=== PATIENT | female | born 1990 | race African-American/Black ===

== ENCOUNTER 2017-08-07 16:40 | Emergency (ER) | payer OTHER ==
[~2017-08-07] VITALS: Ht 162.6 cm; Wt 88.0 kg
[2017-08-07 16:47] VITALS: BP 114/79
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
[2017-08-07] MEDS ORDERED: IBUPROFEN600 MG ORAL (17:56)
[2017-08-07 18:58] VITALS: BP 100/59
--- NOTE | 2017-08-08 10:51 | Diagnostic Imaging Report ---
Indication: PAIN Technique: 3 views of the right elbow Comparison: none Findings: No acute fractures. No dislocations. No joint effusion. Joint spaces are preserved. Normal mineralization. No radiopaque foreign body. Impression: Negative
== END 2017-08-07 18:58 | disposition home or self-care (01) ==
LOC: EMR 17:40
DX: S42.401A Unspecified fracture of lower end of right humerus, initial encounter for closed fracture (principal); Y04.8XXA Assault by other bodily force, initial encounter; X58.XXXA Exposure to other specified factors, initial encounter; Y92.9 Unspecified place or not applicable
CPT/HCPCS: 29105; 99283

== ENCOUNTER 2018-11-01 07:48 | Emergency (ER) | payer OTHER ==
[~2018-11-01] VITALS: Ht 160 cm; Wt 88.5 kg
[~2018-11-01 07:48] MED LIST: IBUPROFEN600 MG ORAL
[2018-11-01 08:06] VITALS: BP 110/77
--- NOTE | 2018-11-01 08:11 | NUR ---
ED Nurse Note: Pt present at ER c/o sore throat, dry coughing pink sputum, ear and throat pain 7/10 upon coughing. VS stable no fever, patient has weak voice, lungs sound clear. Pt remain calm and cooperative with initial assessement.
[2018-11-01] MEDS ORDERED: Albuterol ud Inhalation HHN ONE (08:15)
[2018-11-01] MEDS ORDERED: Ipratropium 0.02% Inh Soln 2.5ml UD HHN ONE (08:15)
--- NOTE | 2018-11-01 08:18 | Emergency Room Report ---
History of Present Illness General Chief Complaint: Upper Respiratory Illness Source: Patient Present Illness HPI 28-year-old female presents ED for evaluation. Complaining of cough and congestion 3 days. States cough is productive with yellowish phlegm. Notes tinges of blood in her mucus. Denies fevers or chills. Also notes sore throat. Pain is dull, 5 out of 10, nonradiating. States she lost her voice. Denies sick contacts or recent travel. No other aggravating relieving factors. Denies any other associated symptoms Allergies: Coded Allergies: No Known Allergies (Unverified , 08/07/17) Patient History Past Medical History: DM Past Surgical History: none Pertinent Family History: none Social History: Denies: smoking, alcohol use, drug use Last Menstrual Period: 10/09/18 Now: No Immunizations: UTD Reviewed Nursing Documentation: PMH: Agreed; PSxH: Agreed Nursing Documentation-PMH Past Medical History: No History, Except For Hx Diabetes: Yes - Type 2 borderline Review of Systems All Other Systems: negative except mentioned in HPI Physical Exam Vital Signs Date Time Temp Pulse Resp B/P (MAP) Pulse Ox O2 Delivery O2 Flow Rate FiO2 11/01/18 07:58 98.4 91 20 108/78 97 Room Air 11/01/18 08:06 96 Sp02 EP Interpretation: reviewed, normal General Appearance: no apparent distress, alert, GCS 15, non-toxic Head: normocephalic, atraumatic Eyes: bilateral eye normal inspection, bilateral eye PERRL ENT: hearing grossly normal, normal pharynx, no angioedema, normal voice Neck: full range of motion, supple/symm/no masses Respiratory: chest non-tender, lungs clear, decreased breath sounds, speaking full sentences Cardiovascular #1: regular rate, rhythm, no edema Cardiovascular #2: 2+ carotid (R), 2+ carotid (L), 2+ radial (R), 2+ radial (L) , 2+ dorsalis pedis (R), 2+ dorsalis pedis (L) Gastrointestinal: normal bowel sounds, non tender, soft, non-distended, no guarding, no rebound Rectal: deferred Genitourinary: normal inspection, no CVA tenderness Musculoskeletal: back normal, gait/station normal, normal range of motion, non- tender Neurologic: alert, oriented x3, responsive, motor strength/tone normal, sensory intact, speech normal Psychiatric: judgement/insight normal, memory normal, mood/affect normal, no suicidal/homicidal ideation Reflexes: 3+ bicep (R), 3+ bicep (L), 3+ tricep (R), 3+ tricep (L), 3+ knee (R) , 3+ knee (L) Skin: normal color, no rash, warm/dry, well hydrated Lymphatic: no adenopathy Medical Decision Making Diagnostic Impression: Primary Impression: Bronchitis ER Course Hospital Course 28-year-old female presents to ED complaining of cough, runny nose, SOB Differential diagnoses include: URI, bronchitis, asthma/COPD, pneumonia Clinical course Patient placed on stretcher. After initial history and physical I ordered prednisone and nebulizer treatment. Upon reassessment patient states cough and symptoms have improved. Findings consistent with bronchitis. discussed findings with patient. course is viral and self limited. we will prescribe cough medications, inhaler, steroids Patient states she does not have a PMD. We'll provide referrals Diagnosis - bronchitis Stable and discharged home with prescriptions for Rx prednisone, albuterol, promethazine/codeine. Instructed to followup with PMD. Return to ED if symptoms recur or worsen Last Vital Signs Date Time Temp Pulse Resp B/P (MAP) Pulse Ox O2 Delivery O2 Flow Rate FiO2 11/01/18 08:06 91 20 Room Air 96 11/01/18 08:06 97.4 110/77 97 Status: improved Disposition: HOME, SELF-CARE Condition: Stable Scripts Prednisone* (PREDNISONE*) 20 Mg Tablet 40 MG ORAL DAILY, #10 TAB Prov: Ugo Tomlin MD 11/01/18 Albuterol Sulfate* (ALBUTEROL SULFATE MDI*) 8.5 Gm Hfa.aer.ad 2 PUFF INH Q6H, #1 EA 0 Refills Prov: Ugo Tomlin MD 11/01/18 Codeine/Promethazine Hcl* (PROMETHAZINE-CODEINE SYRUP*) 118 Ml Syrup 5 ML ORAL Q6H PRN for For Cough, #118 ML 0 Refills Prov: Ugo Tomlin MD 11/01/18 Acetaminophen* (TYLENOL EXTRA STRENGTH*) 500 Mg Tablet 500 MG ORAL Q8H PRN for Prn Headache/Temp > 101, #30 TAB 0 Refills Prov: Ugo Tomlin MD 11/01/18 Ugo Tomlin MD Nov 01, 2018 08:18
[2018-11-01] MEDS ORDERED: PROMETHAZINE-C118 M1 ORAL (09:10)
[2018-11-01] MEDS ORDERED: PREDNISONE20 MG ORAL (09:10)
[2018-11-01] MEDS ORDERED: ALBUTEROL SULF8.5 GM INH (09:10)
[2018-11-01] MEDS ORDERED: TYLENOL EXTRA500 MG ORAL (09:10)
[2018-11-01 09:25] VITALS: BP 124/74
--- NOTE | 2018-11-01 09:27 | NUR ---
ED Nurse Note: Pt was cleared out to be discharged by ERMD. Pt received discharge instruction with prescriptions. Pt verbalized understanding of discharge instruction. VSS without fever and pt ambulated to be discharged. ID band removed.
== END 2018-11-01 09:29 | disposition home or self-care (01) ==
LOC: EMR 08:15
DX: J40 Bronchitis, not specified as acute or chronic (principal); E11.9 Type 2 diabetes mellitus without complications
CPT/HCPCS: 94640; 94664; 99284; J7512

== ENCOUNTER 2018-12-31 10:38 | Emergency (ER) | payer OTHER ==
[~2018-12-31] VITALS: Ht 160 cm; Wt 88.5 kg
[~2018-12-31 10:38] MED LIST changes: +ALBUTEROL SULF8.5 GM INH; +PREDNISONE20 MG ORAL; +PROMETHAZINE-C118 M1 ORAL; +TYLENOL EXTRA500 MG ORAL
[2018-12-31] MEDS ORDERED: NKM (10:47)
[2018-12-31 11:00] VITALS: BP 135/75
[2018-12-31] MEDS ORDERED: Ketorolac 30mg Inj IM ONE (11:00)
[2018-12-31] MEDS ORDERED: Norco 5mg/325mg tab PO ONE (11:00)
--- NOTE | 2018-12-31 11:00 | NUR ---
ED Nurse Note: patient walked in by her self, complaining of pain in her left shoulder. per patient she sleeps with her arm under her head and that cause her shoulder stiff and painful. AAO x 4, VSS at this time. Skin is dry intact, warm to touch.
--- NOTE | 2018-12-31 11:08 | NUR ---
ED Nurse Note: unable to scan Toradol
--- NOTE | 2018-12-31 11:45 | NUR ---
ED Nurse Note: Pt. went to CT
--- NOTE | 2018-12-31 12:09 | Diagnostic Imaging Report ---
Indication: Shoulder pain for 2 weeks Technique: 3 views of the left shoulder Comparison: none Findings: Ossific densities adjacent to the humeral head presumably reflect rotator cuff calcific tendinosis. No acute fractures. No dislocations. Joint spaces are preserved. Impression: No acute process
[2018-12-31] MEDS ORDERED: NORCO 5-325 TA1 EACH ORAL (12:12)
[2018-12-31] MEDS ORDERED: IBUPROFEN600 MG ORAL (12:12)
[2018-12-31 12:15] VITALS: BP 135/75
--- NOTE | 2018-12-31 12:15 | NUR ---
ED Nurse Note: Pt cleared by health care Provider for discharge. DC instructions/prescription was given and explained to pt and verbalized understanding of teachings. All medical deviecs such as ID band removed. Pt is AAO x4, ambulatory and left with all personal belongings.
--- NOTE | 2018-12-31 13:20 | Emergency Room Report ---
History of Present Illness General Chief Complaint: Shoulder Injury Source: Patient Present Illness HPI Patient presents emergency department today complaining of left shoulder pain. Patient apparently has been sleeping on her left shoulder. She states that her shoulder has been feeling numb intermittently for quite some time but last night started having worsening left shoulder pain. She has pain limited range of motion. She denies any trauma or any other injuries. No other complaints were noted. Symptoms noted to moderate severe. Patient denies any neck pain chest pain shortness of breath.No other modifying factors. No other associated signs and symptoms. No other complaints were noted. Allergies: Coded Allergies: No Known Allergies (Unverified , 12/31/18) Patient History Past Medical History: DM Past Surgical History: none Pertinent Family History: none Social History: Denies: smoking, alcohol use, drug use Last Menstrual Period: NOV 2018 Now: No Reviewed Nursing Documentation: PMH: Agreed; PSxH: Agreed Nursing Documentation-PMH Past Medical History: No History, Except For Hx Diabetes: Yes - Type 2 borderline Review of Systems All Other Systems: negative except mentioned in HPI Physical Exam Vital Signs Date Time Temp Pulse Resp B/P (MAP) Pulse Ox O2 Delivery O2 Flow Rate FiO2 12/31/18 10:44 97.9 81 16 113/75 98 Room Air Sp02 EP Interpretation: reviewed, normal General Appearance: normal inspection, well appearing, no apparent distress, alert Head: atraumatic Eyes: bilateral eye normal inspection ENT: normal ENT inspection, hearing grossly normal, normal voice Neck: normal inspection, full range of motion, supple, no bony tend Respiratory: normal inspection, lungs clear, normal breath sounds, no respiratory distress, no retraction, no wheezing Cardiovascular #1: regular rate, rhythm, no edema Gastrointestinal: normal inspection, normal bowel sounds, non tender, soft, no guarding, no hernia Genitourinary: no CVA tenderness Musculoskeletal: normal inspection, back normal, decreased range of motion - Left shoulder, tender - Left shoulder Neurologic: normal inspection, alert, responsive, speech normal Psychiatric: normal inspection, judgement/insight normal, mood/affect normal Skin: normal inspection, normal color, no rash Medical Decision Making Diagnostic Impression: Primary Impression: Shoulder injury ER Course Patient presents emergency department today complaint left shoulder pain. Difficult considerations include dislocation, shoulder fracture, shoulder strain just name a few. Patient's exam is concerning for possible rotator cuff injury. X-ray shows evidence of cost locations around the rotator cuff. Therefore I felt that this likely is a rotator cuff strain or tendinitis. Patient was given a sling. Recommend outpatient follow-up with orthopedics and physical therapy.Patient is advised to follow up with primary doctor in 2-3 days and return the emergency room for any worsening symptoms and as needed. Other X-Ray Diagnostic Results Other X-Ray Diagnostic Results : X-Ray ordered: Shoulder x-ray # of Views/Limited Vs Complete: 2 View Indication: Pain EP Interpretation: No Interpretation: no dislocation, other - Calcification consistent with tendon injury Last Vital Signs Date Time Temp Pulse Resp B/P (MAP) Pulse Ox O2 Delivery O2 Flow Rate FiO2 12/31/18 12:15 98.0 70 18 136/75 100 Room Air Status: improved Disposition: HOME, SELF-CARE Condition: Stable Scripts Ibuprofen* (MOTRIN*) 600 Mg Tablet 600 MG ORAL Q8H PRN for For Pain, #20 TAB 0 Refills Prov: Bebeto Rahman MD 12/31/18 Hydrocodone Bit/Acetaminophen 5-325* (NORCO 5-325*) 1 Each Tablet 1 TAB ORAL Q6H PRN for For Pain, #20 TAB 0 Refills Prov: Bebeto Rahman MD 12/31/18 Referrals: [facility]ERR[facility] (PCP) Patient Instructions: Rotator Cuff Tendinitis, Shoulder Sprain Bebeto Rahman MD Dec 31, 2018 13:20
== END 2018-12-31 14:39 | disposition home or self-care (01) ==
LOC: EMR 11:00
DX: S49.92XA Unspecified injury of left shoulder and upper arm, initial encounter (principal); X58.XXXA Exposure to other specified factors, initial encounter; Y92.009 Unspecified place in unspecified non-institutional (private) residence as the place of occurrence of the external cause
CPT/HCPCS: 73030; 81025; 96372; 99283; J1885